=== PATIENT | male | born 1955 | race Caucasian/White ===

== ENCOUNTER 2016-08-12 05:40 | Outpatient (CLI) | payer BC ==
[~2016-08-12] VITALS: Ht 188 cm; Wt 104.3 kg
[~2016-08-12 05:40] MED LIST: ASP81TEC PO; LSNP20T PO; OMEP-10 PO
[2016-08-12] MEDS ORDERED: MULT-35 PO (11:18)
== END 2016-08-12 11:22 ==
LOC: PREOP 05:40
PROVIDERS: ATTEND Internal Medicine
DX: Z01.818 Encounter for other preprocedural examination (principal); Z12.11 Encounter for screening for malignant neoplasm of colon

== ENCOUNTER 2016-08-14 08:59 | Day surgery (SDC) | payer BC ==
[~2016-08-14] VITALS: Ht 188 cm; Wt 104.3 kg
[~2016-08-14 08:59] MED LIST changes: +MULT-35 PO
--- OUTSIDE RECORDS SUMMARY | 2016-08-14 09:02 | XMS REPORT | Continuity of Care Document ---
Author Author [facility] Organization [facility] Address Unknown Phone Unavailable Support Name Relationship Address Phone SAGE LICONA MD Caregiver [address], [address] [place] [address] ESTEFANÍA COLIN Next Of Kin [address] [place] [address] Insurance Providers Payer Name Policy Number Subscriber Name Relationship [facility] [id number] Hamida Colin 18 Self / Same As Patient Advance Directives Directive Response Recorded Date/Time Advance Directives No 08/12/16 11:16am Health Care Power of Operations Examiner No 08/12/16 11:16am Organ Donor Yes 08/12/16 11:16am Resuscitation Status Full Code 08/12/16 11:16am Problems No problem information available. Medications Current Home Medications Medication Dose Units Route Directions Days/Qty Instructions Start Date Lisinopril 20 Mg 20 Mg Oral Daily 07/24/11 Omeprazole 20 Mg 20 Mg Oral Daily 07/24/11 Aspirin 81 Mg 81 Mg Oral Daily 07/24/11 Multivitamin 1 Each 1 Each Oral Daily 08/12/16 Social History Social History Problem Response Recorded Date/Time Alcohol Use Occasionally Uses 08/12/2016 11:16am Recreational Drug Use No 08/12/2016 11:16am Recent Foreign Travel No 08/12/2016 11:15am Recent Infectious Disease Exposure No 08/12/2016 11:15am Sexually Transmitted Disease No 08/12/2016 11:16am HIV/AIDS No 08/12/2016 11:16am Smoking Status Never a Smoker 08/12/2016 11:16am Recent Hopitalizations No 08/12/2016 11:16am Sexually Transmitted Disease No 08/12/2016 11:16am Query Response Start Date Stop Date Smoking Status Never a Smoker Hospital Discharge Instructions No hospital discharge instructions. Plan of Care Discharge Date 08/12/16 11:22am Prescriptions See Medication Section Functional Status No functional status results. Allergies, Adverse Reactions, Alerts No known allergies. Immunizations No immunization records. Vital Signs Acute Vital Signs Vital Response Date/Time Height (Feet) 6 feet 08/12/2016 11:15am Height (Inches) 2.00 inches 08/12/2016 11:15am Height (Calculated Centimeters) 187.721618 cm 08/12/2016 11:15am Weight (Pounds) 230 pounds 08/12/2016 11:15am Weight (Ounces) 0.0 oz 08/12/2016 11:15am Weight (Calculated Grams) 197945.25 gm 08/12/2016 11:15am Weight (Calculated Kilograms) 104.441126 kilograms 08/12/2016 11:15am Calculated BMI 29.5 08/12/2016 11:15am Results No known relevant diagnostic tests, laboratory data and/or discharge summary. Procedures No known history of procedures. Encounters Encounter Location Arrival/Admit Date Discharge/Depart Date Attending Provider Registered Clinic [facility] 08/12/16 5:40am SAGE LICONA MD
--- OUTSIDE RECORDS SUMMARY | 2016-08-14 09:03 | XMS REPORT | Continuity of Care Document ---
Author Author [facility] Organization [facility] Address Unknown Phone Unavailable Support Name Relationship Address Phone SAGE LICONA MD Caregiver [address], [address] [place] [address] ESTEFANÍA COLIN Next Of Kin [address] [place] [address] Insurance Providers Payer Name Policy Number Subscriber Name Relationship [facility] [id number] Hamida Colin 18 Self / Same As Patient Advance Directives Directive Response Recorded Date/Time Advance Directives No 08/12/16 11:16am Health Care Power of Supervisor Vendor Quality No 08/12/16 11:16am Organ Donor Yes 08/12/16 [...] 2.00 inches 08/12/2016 11:15am Height (Calculated Centimeters) 187.832059 cm 08/12/2016 11:15am Weight (Pounds) 230 pounds 08/12/2016 11:15am Weight (Ounces) 0.0 oz 08/12/2016 11:15am Weight (Calculated Grams) 864627.25 gm 08/12/2016 11:15am Weight (Calculated Kilograms) 104.630905 kilograms 08/12/2016 11:15am Calculated BMI 29.5 08/12/2016 11:15am Results No known relevant diagnostic tests, laboratory data and/or discharge summary. Procedures No known history of procedures. Encounters Encounter Location Arrival/Admit Date Discharge/Depart Date Attending Provider Registered Clinic [facility] 08/12/16 5:40am SAGE LICONA MD
[2016-08-14] MEDS ORDERED: NS IV 1000 ML 1,000 ML ONE (09:10)
[2016-08-14] MEDS ORDERED: NS IV 1000 ML 1,000 ML IV STA (09:49)
[2016-08-14] MEDS ORDERED: FLUMAZENIL (ROMAZICON) 0.1 MG/ML 5 ML VIAL INJ PRN (10:00)
[2016-08-14] MEDS ORDERED: NALOXONE 0.4 MG/ML 1 ML (NARCAN) VIAL IVP PRN (10:00)
[2016-08-14] MEDS ORDERED: LIDOCAINE JELLY 2% (XYLOCAINE) 5 ML TUBE MM PRN (10:00)
[2016-08-14] MEDS ORDERED: fentaNYL INJECTION 100 MCG/2 ML AMP IVP PRN (10:00)
[2016-08-14] MEDS ORDERED: MIDAZOLAM 2 MG/2 ML (VERSED) VIAL IVP PRN (10:00)
--- NOTE | 2016-08-14 10:26 | HISTORY AND PHYSICAL ---
DICTATING PHYSICIAN: Dr. Osorio DATE OF ADMISSION: 08/14/2016 Mr. Poe is a 61-year-old white male referred for screening colonoscopy. Past history of adenomatous colonic polyps on colonoscopy in 02/2006. He had 2 pedunculated polyps; one removed from the mid transverse colon and the other one from the hepatic flexure. He was referred by Dr. Encarnacion. He reports no significant change in his health history. He has noted no blood in his stool. Denies bowel habit change. He has been on a lower carbohydrate diet and has lost over 20 pounds, in the past 6 months. He reports improved energy level and denies chest discomfort, dyspnea on exertion or palpitations. PAST MEDICAL HISTORY: 1. Significant for hypertension. 2. Reflux. 3. He has undergone EGD in the past and had no evidence for Soria's change. MEDICATIONS: 1. Lisinopril 10 mg daily. 2. Prilosec 20 mg daily. 3. Fish oil 1000 mg daily. 4. Aspirin 81 mg daily. 5. Multiple vitamin daily. SOCIAL HISTORY: He has rare social alcohol intake with no past smoking history. he is employed. FAMILY HISTORY: Father at age of 76, secondary lung cancer with smoking history. Mother at age 59 of breast cancer. He is not aware of any family history for colon cancer. He has several siblings alive and well. He has not aware that they have any health problems. PAST SURGICAL HISTORY: 1. He had recent cataract surgery. 2. Reporting no other significant surgeries. PHYSICAL EXAMINATION: Reveals a well-appearing white male in no acute distress. Blood pressure 112/86, heart rate was 72 and regular. HEENT EXAMINATION: Unremarkable. Sclera are nonicteric. Oral cavity reveals a Mallampati class II configuration. Oral cavity is clear, no exudates or erythema is noted. Dentition is good. NECK: Reveals no JVD, adenopathy or bruits. CHEST: Clear. CV: Reveals regular rate and rhythm without murmur, S3 or S4. ABDOMEN: Soft, supple without masses, organomegaly or tenderness. No bruits are noted. Bowel sounds are positive in all 4 quadrants. EXTREMITIES: Reveal no cyanosis, clubbing, or edema. ASSESSMENT: The patient was set-up for screening colonoscopy on 08/14. Prep instructions with the Knight-prep kit were given and questions were answered. 35 minutes of [id number] care time was spent by myself with another 15 minutes of staff time in setting up his colonoscopy and going over prep instructions. I thank you for the referral of this pleasant gentleman. Sincerely, Benedicto Osorio Job ID: [id number] Dictated Date: 08/03/2016 19:26:00 Code Official Date: 08/04/2016 10:24:36/dianne
[2016-08-14 10:35] VITALS: BP 142/100
[2016-08-14 10:38] VITALS: BP 112/94
[2016-08-14 11:00] VITALS: BP 123/94
[2016-08-14 11:46] VITALS: BP 123/94
--- NOTE | 2016-08-17 09:23 | PROCEDURE REPORT ---
PROCEDURE PHYSICIAN: SAGE OSORIO DATE OF PROCEDURE: 08/14/2016 INDICATION FOR THE PROCEDURE: Screening colonoscopy. REFERRING PHYSICIAN: Dr. Encarnacion PROCEDURE: The patient was placed in the left lateral decubitus position. Prior to undergoing colonoscopy, digital rectal evaluation was performed. The prostate is mildly enlarged, anodular and nontender to digital inspection. Anal sphincter tone was normal and the perianal reflex was intact. No other abnormalities were noted to digital inspection of the anal canal or distal rectal vault. The colonoscope was then inserted into the rectum and under direct visualization advanced to the cecum. The cecum was identified by identification of the ileocecal valve and cecal strap. Photographic documentation was obtained. Careful inspection was made as the colonoscope was withdrawn. The patient tolerated the procedure well. FINDINGS: There is no evidence for internal or external hemorrhoids. The rectum was unremarkable. Present in the rectosigmoid junction was a diminutive hyperplastic appearing polyp. It was biopsied and ablated, and submitted for histopathology with no subsequent blood loss. Several small sigmoid diverticulum were present, without evidence for diverticulitis. Another 3 mm sessile polyp was noted in the mid sigmoid colon. It was biopsied and ablated and submitted for histopathology. No other abnormalities were appreciated. The descending colon, splenic flexure, transverse colon, hepatic flexure, ascending colon and cecum were unremarkable. ASSESSMENT: 2 diminutive polyps with hyperplastic features were biopsied and ablated, one from the rectosigmoid junction; one from the mid sigmoid colon. Mild diverticular disease is present confined to the sigmoid colon with no other significant abnormalities being noted on today' s procedure. I would advocate consideration for repeat surveillance colonoscopy in 5 years as long as there are no surprises on histopathology reporting. I thank you for the referral of this pleasant gentleman. Sincerely, Sage Fonsecaon Job ID: [id number] Dictated Date: 08/16/2016 09:23:59 Newspaper Reporter Date: 08/17/2016 09:11:14 / dianne DRAKE
== END 2016-08-14 11:15 | disposition home or self-care (01) ==
LOC: SDC 08:59
PROVIDERS: ATTEND Internal Medicine
DX: Z12.11 Encounter for screening for malignant neoplasm of colon (principal); K63.5 Polyp of colon; K57.30 Diverticulosis of large intestine without perforation or abscess without bleeding

== ENCOUNTER 2018-05-30 15:53 | Emergency (ER) | payer BC ==
[~2018-05-30] VITALS: Ht 185.4 cm; Wt 105.2 kg
[2018-05-30] MEDS ORDERED: predniSONE 20 MG TAB PO ONE (16:45)
[2018-05-30] MEDS ORDERED: diphenhydrAMINE 25 MG TAB (BENADRYL) PO ONE (16:45)
[2018-05-30] MEDS ORDERED: FAMOTIDINE 20 MG (PEPCID) TABLET PO ONE (16:45)
--- OUTSIDE RECORDS SUMMARY | 2018-05-30 17:41 | XMS REPORT | Continuity of Care Document ---
Author Author [facility] Organization [facility] Address Unknown Phone Unavailable Allergies Active Description Code Type Severity Reaction Onset Reported/Identified Relationship to Patient Clinical Status Yes No Known Drug Allergies [id number] Drug Allergy Unknown N/A 08/14/2016 Medications There is no data. Problems Date Dx Coded Attending Type Code Diagnosis Diagnosed By 07/24/2011 Ot 211.3 BENIGN NEOPLASM LG BOWEL 07/24/2011 Ot 562.10 DIVERTICULOSIS COLON (W/O MENT OF HEMORR 07/24/2011 Ot V76.51 SCREEN MAL NEOP-COLON 08/04/2016 Ot 786.2 COUGH 08/12/2016 SAGE LICONA MD Ot Z01.818 ENCOUNTER FOR OTHER PREPROCEDURAL EXAMIN 08/12/2016 SAGE LICONA MD Ot Z12.11 ENCOUNTER FOR SCREENING FOR MALIGNANT NE 08/14/2016 Ot 786.2 COUGH 08/14/2016 SAGE LICONA MD Ot K57.30 DVRTCLOS OF LG INT W/O PERFORATION OR AB 08/14/2016 SAGE LICONA MD Ot K63.5 POLYP OF COLON 08/14/2016 SAGE LICONA MD Ot Z12.11 ENCOUNTER FOR SCREENING FOR MALIGNANT NE 08/18/2016 SAGE LICONA MD Ot K57.30 DVRTCLOS OF LG INT W/O PERFORATION OR AB 08/18/2016 SAGE LICONA MD Ot K63.5 POLYP OF COLON 08/18/2016 SAGE LICONA MD Ot Z12.11 ENCOUNTER FOR SCREENING FOR MALIGNANT NE Procedures There is no data. Results There is no data. Encounters ACCT No. Visit Date/Time Discharge Status Pt. Type Provider Facility Loc./Unit Complaint [id number] 08/14/2016 08:59:00 08/14/2016 11:15:00 DIS Outpatient SAGE LICONA MD [facility] SCREENING [id number] 08/12/2016 05:40:00 08/12/2016 11:22:00 DIS Outpatient LIVAN MOONEY, SAGE Schultz [facility] PREOP SCREENING [id number] 07/25/2015 17:00:00 07/25/2015 23:59:59 CLS Outpatient RASHAAD DELEON [facility] QUICK [id number] 05/30/2018 15:54:00 ACT Emergency BRIELLE MOONEY, INES Mack [facility] ER TONGUE SWELLING [id number] 07/28/2011 14:47:00 Document Registration [id number] 07/24/2011 07:19:00 Document Registration
[2018-05-30] MEDS ORDERED: PRD20T PO (18:06)
--- NOTE | 2018-05-30 18:07 | ED General ---
General Chief Complaint: Allergic Reaction Stated Complaint: TONGUE SWELLING Nursing Triage Note: PT PRESENTS TO ER WITH COMPLAINT OF RIGHT SIDED TONGUE SWELLING. PT STATES IT STARTED AROUND 1415. Nursing Sepsis Screen: No Definite Risk Source of Information: Patient Exam Limitations: No Limitations History of Present Illness Date Seen by Provider: May 30, 2018 Time Seen by Provider: 16:35 Initial Comments This 63-year-old gentleman presents to the emergency room with complaints of swelling to the right side of his tongue and some mild numbness around the lips. He experienced some similar lip tingling many years ago but has never experienced tongue swelling. He denies difficulty breathing or tightness in the throat. He does take lisinopril. Symptoms started around 14:30. He denies any hives or itching. He has not taken any medications to treat the swelling. Allergies and Home Medications Allergies Coded Allergies: lisinopril (Verified Allergy, Intermediate, Angioedema, 05/30/18) Andioedema Home Medications Lisinopril 20 Mg Tab, 20 MG PO DAILY, (Reported) Multivitamin 1 Each Tablet, 1 EACH PO DAILY, (Reported) Omeprazole 20 Mg Capsule.dr, 20 MG PO DAILY, (Reported) Prednisone 20 Mg Tab, 40 MG PO DAILY Prescribed by: INES HERNÁNDEZ on 05/30/18 1625 Patient Home Medication List Home Medication List Reviewed: Yes Review of Systems Review of Systems Constitutional: no symptoms reported EENTM: see HPI Respiratory: no symptoms reported Cardiovascular: no symptoms reported Gastrointestinal: no symptoms reported Genitourinary: no symptoms reported Musculoskeletal: no symptoms reported Skin: no symptoms reported Psychiatric/Neurological: No Symptoms Reported Hematologic/Lymphatic: No Symptoms Reported Immunological/Allergic: see HPI Past Jbstnlr-Ascnfe-Atchnd Hx Patient Social History Alcohol Use: Denies Use Recreational Drug Use: No Smoking Status: Never a Smoker Recent Foreign Travel: No Contact w/Someone Who Travel: No Recent Infectious Disease Expo: No Recent Hopitalizations: No Seasonal Allergies Seasonal Allergies: No Past Medical History Surgeries: Yes (DETATCDED RETINA, WISDOM TEETH, SKIN GRAFT) Tonsillectomy Respiratory: No Cardiac: Yes Hypertension Neurological: No Reproductive Disorders: No Sexually Transmitted Disease: No HIV/AIDS: No Gastrointestinal: Yes Gastroesophageal Reflux Musculoskeletal: No Endocrine: No Loss of Vision: Bilateral Hearing Impairment: Denies Cancer: No Psychosocial: No Integumentary: No Blood Disorders: No Adverse Reaction/Blood Tranf: No (N/A) Physical Exam Vital Signs Vital Signs - First Documented 05/30/18 16:05 Temp 98.0 Pulse 85 Resp 19 B/P (MAP) 131/95 (107) Pulse Ox 95 O2 Delivery Room Air Capillary Refill : Less Than 3 Seconds Height, Weight, BMI Height: 6'1.00" Weight: 232lbs. 0.0oz. 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 Norm as Tested Skin: Normal Color, Warm/Dry; No Rash Progress/Results/Core Measures Suspected Sepsis Recent Fever Within 48 Hours: No Infection Criteria Present: None New/Unexplained Altered Menta: No Sepsis Screen: No Definite Risk SIRS Temperature:98.0 Pulse: 85 Respiratory Rate: 19 Blood Pressure 131 /95 Mean: 107 Results/Orders My Orders Orders - INES HANNAH MD Famotidine Tablet (Pepcid Tablet) (05/30/18 16:45) Prednisone Tablet (Deltasone Tablet) (05/30/18 16:45) Diphenhydramine Tablet (Benadryl Tablet) (05/30/18 16:45) Medications Given in ED Current Medications Medications Dose Ordered Sig/Jostin Route Start Time Stop Time Status Last Admin Dose Admin Diphenhydramine HCl 50 mg ONCE ONCE PO 05/30/18 16:45 05/30/18 16:46 DC 05/30/18 16:50 50 MG Famotidine 20 mg ONCE ONCE PO 05/30/18 16:45 05/30/18 16:46 DC 05/30/18 16:50 20 MG Prednisone 40 mg ONCE ONCE PO 05/30/18 16:45 05/30/18 16:46 DC 05/30/18 16:50 40 MG Vital Signs/I&O 05/30/18 05/30/18 16:05 18:25 Temp 98.0 98.0 Pulse 85 85 Resp 19 19 B/P (MAP) 131/95 (107) 131/95 (107) Pulse Ox 95 95 O2 Delivery Room Air Capillary Refill : Less Than 3 Seconds Blood Pressure Mean: 107 Progress Note : Progress Note Patient has had no progression in symptoms since onset at 14:30. He was given the option of IV therapy versus oral therapy. He selected oral therapy and was given prednisone, Pepcid, and Benadryl. He was monitored until there was improvement in his symptoms. He was then dismissed home. He was instructed to discontinue lisinopril use and listed as an allergy as this is the likely cause of his angioedema. He identified no other new exposures that may have triggered it. Departure Impression Primary Impression: Angioedema Qualified Codes: T78.3XXA - Angioneurotic edema, initial encounter Disposition: HOME, SELF-CARE Condition: Improved Departure-Patient Inst. Decision time for Depature: 18:04 Referrals: VICENTE SALINAS MD (PCP) Primary Care Physician Patient Instructions: Angioedema Add. Discharge Instructions: Keep Benadryl (diphenhydramine) and Pepcid (famotidine) on hand at all times over the next few days. Symptoms return, take Pepcid 20 mg as often as every 12 hours and Benadryl 50 mg as often as every 4 hours as needed to control symptoms. If symptoms are severe causing shortness of breath or throat swelling, call 911 or return immediately to the emergency room. Start the prednisone prescription tomorrow morning if symptoms rebound. Contact your primary care provider to find an alternative for lisinopril. Do not take lisinopril or any member of the REJI inhibitor family of blood pressure medications. Always list lisinopril as an allergy at future healthcare encounters. All discharge instructions reviewed with patient and/or family. Voiced understanding. Scripts Prednisone (Prednisone) 20 Mg Tab 40 MG PO DAILY, #6 TAB Prov: INES HANNAH MD 05/30/18 Copy Copies To 1: VICENTE SALINAS MD, JOSHUA T MD May 30, 2018 18:07
[2018-05-30 18:25] VITALS: BP 131/95
== END 2018-05-30 18:25 | disposition home or self-care (01) ==
LOC: EDUNIT# 15:53 → ER 15:54
DX: T78.3XXA Angioneurotic edema, initial encounter (principal); I10 Essential (primary) hypertension; K21.9 Gastro-esophageal reflux disease without esophagitis; Z88.8 Allergy status to other drugs, medicaments and biological substances; Z90.89 Acquired absence of other organs
CPT/HCPCS: 99283

== ENCOUNTER 2022-03-18 05:46 | Outpatient (CLI) | payer MEDICARE ==
[~2022-03-18] VITALS: Ht 185.4 cm; Wt 108.4 kg
[~2022-03-18 05:46] MED LIST changes: +PRD20T PO
[2022-03-18] MEDS ORDERED: TMSL.4C PO (11:01)
[2022-03-18] MEDS ORDERED: HYDR25TA4 PO (11:01)
== END 2022-03-18 11:06 | disposition home or self-care (01) ==
LOC: PREOP 05:46
PROVIDERS: ATTEND Internal Medicine
DX: Z01.818 Encounter for other preprocedural examination (principal); Z86.010 Personal history of colon polyps

== ENCOUNTER → 2022-04-03 | Day surgery (SDC) | payer MEDICARE ==
--- NOTE | 2022-03-18 08:31 | HISTORY AND PHYSICAL ---
DATE OF SERVICE: COLONOSCOPY HISTORY AND PHYSICAL HISTORY OF PRESENT ILLNESS: The patient is a 67-year-old white male referred by Dr. Encarnacion for diagnostic colonoscopy due to past history of colon polyps. He last underwent colonoscopy in July of 2016 at which time he had two polyps, one from the rectosigmoid junction and the other one from the distal sigmoid colon, both with hyperplastic features. He has had several adenomatous polyps removed, two pedunculated in 2005. He does report some intermittent sharp stabbing right mid and upper quadrant pain that will only last a minute or 2. He takes Gas-X when this occurs. It is not associated with nausea and maybe happens once or twice a month. Otherwise, he denies abdominal pain and has had no bowel habit change. Denies melena or bright red blood per rectum. He is not aware of any family history for colon cancer. PAST MEDICAL HISTORY: Significant for hypertension, hyperlipidemia and gastroesophageal reflux. MEDICATIONS ON ADMISSION: Hydrochlorothiazide 25 mg daily, Flomax 0.4 mg daily and 20 mg of Prilosec daily. FAMILY HISTORY: Father at age 76 secondary to lung cancer with a long smoking history. Mother at 59 of breast cancer. He has one older brother recently diagnosed with lung disease. It sounds like possible interstitial fibrosis, living at the age of 71. Brother in his mid 60s, alive and well. SOCIAL HISTORY: He has rare alcohol intake with no past smoking history. Employed. REVIEW OF SYSTEMS: CONSTITUTIONAL: Denies night sweats, chills, fever or change in weight. GASTROINTESTINAL: As noted in the HPI. PULMONARY: Denies cough, wheezing or shortness of breath. CARDIOVASCULAR: Denies orthopnea, PND, pedal edema or syncope. Denies chest discomfort. PHYSICAL EXAMINATION: GENERAL: Reveals pleasant white male, appears to be in no acute distress. VITAL SIGNS: Weight 239 pounds, up 12 pounds from office weight 5-1/2 years ago. Blood pressure 120/78. HEENT: Unremarkable. CHEST: Clear to auscultation. CARDIOVASCULAR: Reveals regular rate and rhythm without murmur, S3 or S4. ABDOMEN: Soft, supple without mass, organomegaly or tenderness. EXTREMITIES: Reveal no cyanosis, clubbing or edema. ASSESSMENT AND PLAN: 1. The patient is being set up for diagnostic colonoscopy due to past history of colon polyps. Prep instructions were given and questions were answered. Electronic medical record was reviewed. Dr. Encarnacion's notation reviewed as well. 2. Fleeting sharp right mid and upper quadrant pain. No red flag symptoms, may be more abdominal wall related. I would only advise further investigation should symptoms worsen. Currently manageable. I thank you for the referral of this pleasant gentleman. Job ID: [id number] DocumentID: [id number] Dictated Date: 03/11/2022 15:42:42 Collection Support Specialist Date: 03/11/2022 17:09:13 Dictated By: SAGE LICONA MD
[~2022-04-03] VITALS: Ht 185.4 cm; Wt 108.4 kg
[~2022-04-03] MED LIST changes: +HYDR25TA4 PO; +LACTATED RINGERS 1,000 ML IV STA; +MIDAZOLAM 2 MG/2 ML (VERSED) VIAL ONE; +PROPOFOL INJECTION 50 ML IV ONE; +TMSL.4C PO
--- NOTE | 2022-04-03 08:10 | Pre-Op Note & Conscious Sedat ---
Pre-Operative Progress Note Date H&P Reviewed: Apr 03, 2022 Time H&P Reviewed: 08:10 History & Physical: H&P Reviewed, Patient Examed, No changes noted Pre-Op Diagnosis: hx of colon polyps Conscious Sedation Pre-Proced ASA Score 2 For ASA 3 and 4: Consider anesthesia and medical clearance. Also, for patients with a history of failed moderate sedation consider anesthesia. Airway Lungs Heart ASA score ASA 1: a normal healthy patient ASA 2: a patient with a mild systemic disease (mid diabetes, controlled hypertension, obesity ASA 3: a patient with a severe systemic disease that limits activity (angina, COPD, prior Myocardial infarction) ASA 4: a patient with an incapacitating disease that is a constant threat to life (CHF, renal failure) ASA 5: a moribund patient not expected to survive 24 hrs. (ruptured aneurysm) ASA 6: a declared brain- patient whose organs are being harvested. For emergent operations, add the letter E after the classification Mallampati Classification Grade 2 Sedation Plan Analgesia, Amnesia, Plan communicated to team members, Discussed options with patient/fam, Discussed risks with patient/fam The patient is an appropriate candidate to undergo the planned procedure, sedation, and anesthesia. The patient immediately re-assessed prior to indication. SAGE LICONA MD Apr 03, 2022 08:10
[2022-04-03 08:12] VITALS: BP 136/99
[2022-04-03 09:15] VITALS: BP 118/76
--- NOTE | 2022-04-03 09:16 | Progress Note-Post Operative ---
Post-Procedure Note Physician (s)/Machine Tank Operator (s) Physician SAEG LICONA MD Pre-Procedure Diagnosis Pre-Procedure Diagnosis: hx of colon polyps Post-Procedure Diagnosis Post-operative diagnosis: normal colonoscopy SAGE LICONA MD Apr 03, 2022 09:16
[2022-04-03 09:20] VITALS: BP 119/82
[2022-04-03 09:40] VITALS: BP 120/91
--- NOTE | 2022-04-03 11:34 | Anesthesia-General Post-Op ---
MAC Patient Condition Mental Status/LOC: Same as Preop Cardiovascular: Satisfactory Nausea/Vomiting: Absent Respiratory: Satisfactory Pain: Controlled Complications: Absent Post Op Complications Complications None Follow Up Care/Instructions Patient Instructions None needed. Anesthesiology Discharge Order Discharge Order Patient is doing well, no complaints, stable vital signs, no apparent adverse anesthesia problems. No complications reported per nursing. BILLY ARRIAZA CRNA Apr 03, 2022 11:34
--- NOTE | 2022-04-03 13:37 | OPERATIVE REPORT ---
DATE OF SERVICE: COLONOSCOPY SUMMARY INDICATION FOR THE PROCEDURE: History of colon polyps. DESCRIPTION OF PROCEDURE: The patient was placed in the left lateral decubitus position. Prior to undergoing colonoscopy, digital rectal evaluation was performed. Anal sphincter tone was normal. Prostate was unremarkable to digital inspection. No abnormalities were noted on digital inspection of the anal canal or distal rectal vault. The colonoscope was then inserted into the rectum and under direct visualization advanced to cecum. The cecum was identified by identification of ileocecal valve and ileocecal strap. Photographic documentation was obtained. Careful inspection was made as colonoscope withdrawn. Quality of prep was fair. FINDINGS: There was no evidence for internal or external hemorrhoids and the rectum, sigmoid colon, descending colon, splenic flexure, transverse colon, hepatic flexure, ascending colon, and cecum were unremarkable. ASSESSMENT: Normal colonoscopy to the cecum including digital rectal evaluation of the prostate. Considering history of colon polyps, would advocate consideration for repeat surveillance colonoscopy in 5 years. I thank you for the referral of this pleasant gentleman. Job ID: [id number] DocumentID: [id number] Dictated Date: 04/03/2022 09:15:46 Customer Service Assistant Date: 04/03/2022 13:35:39 Dictated By: SAGE LICONA MD
== END ==
LOC: ENDO 07:44
PROVIDERS: ATTEND Internal Medicine
DX: R10.9 Unspecified abdominal pain (principal); Z86.010 Personal history of colon polyps